=== PATIENT | female | born 1970 | race Caucasian/White ===

== ENCOUNTER 2016-05-30 21:13 | Emergency (ER) | payer BC ==
[2016-05-30 21:31] VITALS: BP 105/65; PULSE 71; TEMP 98; BMI 23.0
--- NOTE | 2016-05-30 22:06 | PDOC ---
History of Present Illness - General History Source: Patient Exam Limitations: No Limitations - History of Present Illness Initial Comments: 05/30/16 23:00 The patient is a 45 year old female with past medical history of asthma who presents to the ED with complaints of chest pain and shortness of breath for two days. She locates the pain to the left side with pain to her left shoulder and neck. She rates the pain 9/10. The patient states the pain is constant and is exacerbated by movement. She also noted one episode of left hand numbness which subsided. She also notes having a sore throat two weeks ago in which she was prescribed antibiotics. She denies any fever, chills, nausea, vomiting, diarrhea, cough. She denies any family hx of heart disease. PCP: Escobar Mendez <Brenda Quesada - Last Filed: 05/31/16 03:29> <Daniel Anderson - Last Filed: 05/31/16 03:49> - General Chief Complaint: Chest Pain Stated Complaint: CHEST PAIN/SOB/LEFT HABD NUMB Time Seen by Provider: 05/30/16 21:30 Past History <Brenda Quesada - Last Filed: 05/31/16 03:29> - Past Medical History Asthma: Yes - Immunization History Immunization Up to Date: Yes - Psycho/Social/Smoking Cessation Hx Anxiety: Yes Suicidal Ideation: No Smoking Status: No Smoking History: Never smoked Have you smoked in the past 12 months: No Number of Cigarettes Smoked Daily: 0 Information on smoking cessation initiated: No Hx Alcohol Use: No Drug/Substance Use Hx: No Substance Use Type: None <Daniel Anderson - Last Filed: 05/31/16 03:49> - Past Medical History Allergies/Adverse Reactions: Allergies Allergy/AdvReac Type Severity Reaction Status Date / Time No Known Allergies Allergy Verified 05/30/16 21:31 Review of Systems - Review of Systems Able to Perform ROS?: Yes Comments:: 05/30/16 23:00 GENERAL/CONSTITUTIONAL: No fever or chills. No weakness. HEAD, EYES, EARS, NOSE AND THROAT: No change in vision. No ear pain or discharge. No sore throat. CARDIOVASCULAR: Present: chest pain, shortness of breath RESPIRATORY: No cough, wheezing, or hemoptysis. GASTROINTESTINAL: No nausea, vomiting, diarrhea or constipation. GENITOURINARY: No dysuria, frequency, or change in urination. MUSCULOSKELETAL: No joint or muscle swelling or pain. No neck or back pain. SKIN: No rash NEUROLOGIC: No headache, vertigo, loss of consciousness, or change in strength/ sensation. ENDOCRINE: No increased thirst. No abnormal weight change. HEMATOLOGIC/LYMPHATIC: No anemia, easy bleeding, or history of blood clots. ALLERGIC/IMMUNOLOGIC: No hives or skin allergy. All Other Systems: Reviewed and Negative <Brenda Quesada - Last Filed: 05/31/16 03:29> *Physical Exam - Vital Signs Last Vital Signs Temp Pulse Resp BP Pulse Ox 98.0 F 71 18 105/65 100 05/30/16 21:28 05/30/16 21:28 05/30/16 21:28 05/30/16 21:28 05/30/16 21:28 - Physical Exam Comments: 05/30/16 23:01 GENERAL: Awake, alert, and fully oriented, in no acute distress HEAD: No signs of trauma EYES: PERRLA, EOMI, sclera anicteric, conjunctiva clear ENT: Auricles normal inspection, hearing grossly normal, nares patent, oropharynx clear without exudates. Moist mucosa NECK: Normal ROM, supple, no lymphadenopathy, JVD, or masses LUNGS: Breath sounds equal, clear to auscultation bilaterally. No wheezes, and no crackles HEART: Regular rate and rhythm, normal S1 and S2, no murmurs, rubs or gallops ABDOMEN: Soft, nontender, normoactive bowel sounds. No guarding, no rebound. No masses EXTREMITIES: Normal range of motion, no edema. No clubbing or cyanosis. No cords, erythema, or tenderness NEUROLOGICAL: Cranial nerves II through XII grossly intact. Normal speech, normal gait SKIN: Warm, Dry, normal turgor, no rashes or lesions noted. <Brenda Quesada - Last Filed: 05/31/16 03:29> - Vital Signs Last Vital Signs Temp Pulse Resp BP Pulse Ox 98.0 F 71 18 105/65 100 05/30/16 21:28 05/30/16 21:28 05/30/16 21:28 05/30/16 21:28 05/30/16 21:28 <Daniel Anderson - Last Filed: 05/31/16 03:49> Heart Score/ECG Review - ECG Intrepretation Comment:: 05/30/16 23:03 ECG obtained at 21:22 Normal sinus at 71 bpm <RoxyBrenda rivera - Last Filed: 05/31/16 03:29> ED Treatment Course - LABORATORY CBC & Chemistry Diagram: 05/30/16 22:31 05/30/16 22:31 - ADDITIONAL ORDERS Additional order review: 05/30/16 22:31 RBC 3.60 MCV 89.3 MCHC 33.1 RDW 15.1 MPV 8.3 Neutrophils % 56.8 Lymphocytes % 34.0 Monocytes % 6.8 Eosinophils % 1.6 Basophils % 0.8 - RADIOLOGY Radiograph Interpretation: 05/31/16 03:29 Wet read chest x-ray by Dr. Anderson reviewed as normal. <SangitaBrenda - Last Filed: 05/31/16 03:29> - LABORATORY CBC & Chemistry Diagram: 05/30/16 22:31 05/30/16 22:31 <Daniel Anderson - Last Filed: 05/31/16 03:49> Medical Decision Making - Medical Decision Making 05/31/16 02:03 This is a 45yo F with no significant PMH and no cardiac risk factors who presents with LEFT sided chest pain radiating to the LEFT arm she reports. She has a negative evaluation including troponin x two and negative ddimer. She is encouraged to follow up with the PMD within the next 24 hours for reevaluation. She is asymptomatic at this time. 05/31/16 03:48 CXR negative. <Daniel Anderson - Last Filed: 05/31/16 03:49> *DC/Admit/Observation/Transfer - Attestations Scribe Attestion: 05/30/16 23:02 Documentation prepared by Brenda Quesada, acting as medical research tech for Daniel Anderson MD. <Brenda Quesada - Last Filed: 05/31/16 03:29> - Discharge Dispostion Admit: No Decision to Admit order Date/Time: 05/31/16 02:07 - Attestations Scribe Attestion: 05/31/16 02:10 I, Dr. Daniel Anderson MD, attest that this document has been prepared under my direction and personally reviewed by me in its entirety. I further attest, that it accurately reflects all work, treatment, procedures and medical decision -making performed by me. Physician Attestion: 05/31/16 02:10 I, Dr. Daniel Anderson MD, attest that this document has been prepared under my direction and personally reviewed by me in its entirety. I further attest, that it accurately reflects all work, treatment, procedures and medical decision -making performed by me. <Daniel Anderson - Last Filed: 05/31/16 03:49> Diagnosis at time of Disposition: Chest pain Qualifiers: Chest pain type: chest pain on breathing Qualified Code(s): R07.1 - Chest pain on breathing - Discharge Dispostion Disposition: HOME Condition at time of disposition: Good - Referrals Referrals: Escboar Mendez MD [Primary Care Provider] - - Patient Instructions Additional Instructions: At this time, there is no findings that would explain your symptoms. Please follow up with your PMD within the next 24 hours and if there is any change otherwise in your symptoms, please return immediately to the ED.
[2016-05-30 22:45] LABS: BASOPHIL 0.8 % (0-2.0); EOSINOPHIL 1.6 % (0-4.5); MCH 29.6 pg (25.7-33.7); MCHC 33.1 g/dl (32.0-36.0); MEAN CELL VOLUME 89.3 fl (80-96); MEAN PLT VOLUME 8.3 fl (7.5-11.1); NEUTROPHILS 56.8 % (42.8-82.8); PLATELET COUNT 427 K/MM3 (134-434); RDW 15.1 % (11.6-15.6); WHITE BLOOD COUNT 6.6 K/mm3 (4.0-10.0)
[2016-05-30 23:16] LABS: ALBUMIN 3.5 g/dl (3.4-5.0); ANION GAP 7 (8-16); BILIRUBIN,TOTAL 0.2 mg/dL (0.2-1.0); CALCIUM 8.6 mg/dL (8.5-10.1); CO2 29 mmol/L (21-32); CREATININE 0.7 mg/dL (0.55-1.02); GLUCOSE,RANDOM 95 mg/dL (74-106); SGOT/AST 16 U/L (15-37); SGPT/ALT 20 U/L (12-78); TOT PROT 6.6 g/dl (6.4-8.2)
[2016-05-30 23:18] LABS: URINE APPEARANCE CLEAR; URINE COLOR DKYELLOW; URINE GLUCOSE (UA) NEGATIVE (NEGATIVE); URINE KETONE TRACE (NEGATIVE); URINE LEUK ESTERASE NEGATIVE (NEGATIVE); URINE NITRITE NEGATIVE (NEGATIVE); URINE PROTEIN NEGATIVE (NEGATIVE); URINE UROBILINOGEN 2.0 E.U/dl E.U./dl (0.2-1.0)
[2016-05-30 23:18] LABS: ALK PHOS 55 U/L (45-117); TROPONIN I < 0.02 ng/ml (0.00-0.05)
[2016-05-30 23:31] LABS: URINE BLOOD 1+ (NEGATIVE)
[2016-05-30 23:33] LABS: URINE MUCUS MANY; URINE RBC 9 /hpf (0-3); URINE WBC 3 /hpf (3-5)
[2016-05-31 00:10] LABS: URINE MARIJUANA THC NEGATIVE ng/ml (CUTOFF=50)
--- NOTE | 2016-06-03 17:21 | EKG ---
Test Reason : Blood Pressure : / mmHG Vent. Rate : 071 BPM Atrial Rate : 071 BPM P-R Int : 126 ms QRS Dur : 072 ms QT Int : 388 ms P-R-T Axes : 008 049 044 degrees QTc Int : 421 ms NORMAL SINUS RHYTHM NORMAL ECG WHEN COMPARED WITH ECG OF 28-JUL-2014 00:15, NO SIGNIFICANT CHANGE WAS FOUND Confirmed by MARILYN SHAH MD ([id number]) on 06/03/2016 5:21:12 PM Referred By: Confirmed By:MARILYN SAHH MD
== END 2016-05-31 03:57 | disposition home or self-care (01) ==
LOC: JER 21:13 → SUPCPDRO 21:13 → JER 05-31 03:57
DX: R07.1 Chest pain on breathing (principal); J45.909 Unspecified asthma, uncomplicated
CPT/HCPCS: 36415; 71010-TC; 80053; 80307; 81003; 81015; 82550; 82553; 83880; 84484; 85025; 85379; 86850; 86900; 86901; 93005; 93010; 99281-25

== ENCOUNTER 2020-03-16 20:48 | Emergency (ER) | payer BC, OTHER ==
[2020-03-16 20:53] VITALS: BP 138/85; PULSE 105; TEMP 98.1; BMI 25.7
[2020-03-16] MEDS ORDERED: IBUPROFEN 600 MG TABLET (FP) PO ONE ×2 (21:41→21:51)
[2020-03-16] MEDS ORDERED: CLINDAMYCIN HCL 150 MG CAPSULE (FP) PO ONE (21:42)
[2020-03-16] MEDS ORDERED: CLINDAMYCIN HCL 150 MG CAPSULE (FP) ONE (21:50)
== END 2020-03-16 22:18 | disposition home or self-care (01) ==
LOC: JER 20:48
DX: R10.2 Pelvic and perineal pain (principal)
CPT/HCPCS: 99283-25

== ENCOUNTER 2020-08-01 16:39 | Emergency (ER) | payer OTHER ==
[2020-08-01 16:47] VITALS: TEMP 98.2; BMI 26.4
[2020-08-01] MEDS ORDERED: ACETAMINOPHEN 500 MG TABLET (FP) PO ONE (18:05)
[2020-08-01] MEDS ORDERED: ACETAMINOPHEN 325 MG TABLET (FP) ONE (18:23)
[2020-08-01 18:57] LABS: BASO % 0.4 % (0-2.0); EOS % 1.6 % (0-4.5); HEMATOCRIT 36.6 % (32.4-45.2); HEMOGLOBIN 12.3 GM/dL (10.7-15.3); LYMPH % 17.7 % (8-40); MCH 31.8 pg (25.7-33.7); MCHC 33.6 g/dl (32.0-36.0); MEAN CELL VOLUME 94.8 fl (80-96); MEAN PLT VOLUME 8.5 fl (7.5-11.1); MONO % 6.9 % (3.8-10.2); NEUT % 73.4 % (42.8-82.8); PLATELET COUNT 413 K/MM3 (134-434); RBC 3.86 M/mm3 (3.60-5.2); RDW 14.1 % (11.6-15.6); WHITE BLOOD COUNT 8.9 K/mm3 (4.0-10.0)
[2020-08-01 19:50] LABS: ALBUMIN 3.7 g/dl (3.4-5.0); BLOOD UREA NITROGEN 16.9 mg/dL (7-18); CALCIUM 9.3 mg/dL (8.5-10.1)
[2020-08-01 19:53] LABS: CREATININE 0.7 mg/dL (0.55-1.3)
[2020-08-01 19:54] LABS: BILIRUBIN,TOTAL 0.3 mg/dL (0.2-1); TOT PROT 7.6 g/dl (6.4-8.2)
[2020-08-01] MEDS ORDERED: CLINDAMYCIN HCL 150 MG CAPSULE (FP) PO ONE (20:55)
[2020-08-01] MEDS ORDERED: CLINDAMYCIN HCL 150 MG CAPSULE (FP) ONE (20:56)
[2020-08-01 21:05] VITALS: BP 118/60; PULSE 88
== END 2020-08-01 21:06 | disposition home or self-care (01) ==
LOC: JER 16:39
DX: L03.115 Cellulitis of right lower limb (principal)
CPT/HCPCS: 36415; 80053; 85025; 87040; 93970-TC; 99284-25

== ENCOUNTER → 2024-05-04 | Day surgery (SDC) | payer BC | END | disposition home or self-care (01) | LOC: JRADUS-SUR 13:50 | PROVIDERS: ATTEND Physician Assistant | PROC: 0H9T3ZX Drainage of Right Breast, Percutaneous Approach, Diagnostic (ICD-10-PCS; principal; 2024-05-04) | DX: N60.11 Diffuse cystic mastopathy of right breast (principal) | CPT/HCPCS: 19083; 76942-TC; 77065-TC; 87899; 88305-TC; A4648 ==

== ENCOUNTER → 2024-05-16 | Day surgery (SDC) | payer BC | END | disposition home or self-care (01) | LOC: FMAMMOTONE 12:36 | PROVIDERS: ATTEND Physician Assistant | PROC: 0HBT3ZX Excision of Right Breast, Percutaneous Approach, Diagnostic (ICD-10-PCS; principal; 2024-05-16) | DX: N60.11 Diffuse cystic mastopathy of right breast (principal); N64.89 Other specified disorders of breast; R92.1 Mammographic calcification found on diagnostic imaging of breast | CPT/HCPCS: 19081; 76098-TC-FY; 87899; 88305-TC; A4648 ==